=== PATIENT | male | born 1995 | race Caucasian/White ===

== ENCOUNTER 2018-12-14 10:02 | Emergency (ER) | payer BC ==
[~2018-12-14] VITALS: Ht 170.2 cm; Wt 72.6 kg
--- NOTE | 2018-12-14 10:12 | PHYS DOC ---
Adult General Chief Complaint Chief Complaint: FLANK PAIN HPI HPI Patient is a 23 year old male that presents with left flank pain has been ongoing for 20 minutes. The patient states he has a history kidney stones. Rates his pain as 10 out of 10 in severity and sharp. No interventions prior to arrival. Review of Systems Review of Systems Constitutional: Denies fever or chills [] Eyes: Denies change in visual acuity, redness, or eye pain [] HENT: Denies nasal congestion or sore throat [] Respiratory: Denies cough or shortness of breath [] Cardiovascular: No additional information not addressed in HPI [] GI: Reports L flank pain, nausea, Denies vomiting, bloody stools or diarrhea [] : Denies dysuria or hematuria [] Musculoskeletal: Denies back pain or joint pain [] Integument: Denies rash or skin lesions [] Neurologic: Denies headache, focal weakness or sensory changes [] Endocrine: Denies polyuria or polydipsia [] Complete systems were reviewed and found to be within normal limits, except as documented in this note. Current Medications Current Medications Current Medications Medications (Trade) Dose Ordered Sig/George Start Time Stop Time Status Last Admin Dose Admin Ketorolac Tromethamine (Toradol 15mg Vial) 10 mg 1X STAT 12/14/18 10:19 12/14/18 10:20 DC 12/14/18 10:30 10 MG Morphine Sulfate (Morphine Sulfate) 2 mg 1X ONCE 12/14/18 10:30 12/14/18 10:31 DC 12/14/18 10:30 2 MG Ondansetron HCl (Zofran) 4 mg 1X ONCE 12/14/18 10:30 12/14/18 10:31 DC 12/14/18 10:29 4 MG Sodium Chloride 500 ml @ 500 mls/hr 1X ONCE 12/14/18 12:00 12/14/18 12:59 Allergies Allergies Allergies Coded Allergies Type Severity Reaction Last Updated Verified No Known Drug Allergies 12/14/18 No Physical Exam Physical Exam Constitutional: Well developed, well nourished, no acute distress, non-toxic appearance. [] HENT: Normocephalic, atraumatic, bilateral external ears normal, oropharynx moist, no oral exudates, nose normal. [] Eyes: PERRLA, EOMI, conjunctiva normal, no discharge. [] Neck: Normal range of motion, no tenderness, supple, no stridor. [] Cardiovascular:Heart rate regular rhythm, no murmur [] Lungs & Thorax: Bilateral breath sounds clear to auscultation [] Abdomen: Bowel sounds normal, soft, no tenderness, no masses, no pulsatile masses. [] Skin: Warm, dry, no erythema, no rash. [] Back: Has L sided CVA tenderness. Extremities: No tenderness, no cyanosis, no clubbing, ROM intact, no edema. [] Neurologic: Alert and oriented X 3, normal motor function, normal sensory function, no focal deficits noted. [] Psychologic: Affect normal, judgement normal, mood normal. [] Current Patient Data Vital Signs Vital Signs Date Time Temp Pulse Resp B/P (MAP) Pulse Ox O2 Delivery O2 Flow Rate FiO2 12/14/18 10:30 12 97 Room Air 12/14/18 10:05 98.3 93 133/62 (85) 98.3 Lab Values Laboratory Tests Test 12/14/18 00:45 12/14/18 10:20 Urine Collection Type Unknown Urine Color Yellow Urine Clarity Clear Urine pH 6.5 Urine Specific [place] 1.020 Urine Protein Negative mg/dL (NEG-TRACE) Urine Glucose (UA) Negative mg/dL (NEG) Urine Ketones (Stick) Negative mg/dL (NEG) Urine Blood Negative (NEG) Urine Nitrite Negative (NEG) Urine Bilirubin Negative (NEG) Urine Urobilinogen Dipstick 0.2 mg/dL (0.2 mg/dL) Urine Leukocyte Esterase Negative (NEG) Urine RBC 0 /HPF (0-2) Urine WBC 1-4 /HPF (0-4) Urine Squamous Epithelial Cells Occ /LPF Urine Bacteria 0 /HPF (0-FEW) Urine Mucus Mod /LPF White Blood Count 6.9 x10^3/uL (4.0-11.0) Red Blood Count 5.10 x10^6/uL (4.30-5.70) Hemoglobin 15.5 g/dL (13.0-17.5) Hematocrit 45.4 % (39.0-53.0) Mean Corpuscular Volume 89 fL (79-100) Mean Corpuscular Hemoglobin 30 pg (25-35) Mean Corpuscular Hemoglobin Concent 34 g/dL (31-37) Red Cell Distribution Width 13.1 % (11.5-14.5) Platelet Count 287 x10^3/uL (140-400) Neutrophils (%) (Auto) 56 % (31-73) Lymphocytes (%) (Auto) 33 % (24-48) Monocytes (%) (Auto) 9 % (0-9) Eosinophils (%) (Auto) 1 % (0-3) Basophils (%) (Auto) 0 % (0-3) Neutrophils # (Auto) 3.9 x10^3/uL (1.8-7.7) Lymphocytes # (Auto) 2.3 x10^3/uL (1.0-4.8) Monocytes # (Auto) 0.6 x10^3/uL (0.0-1.1) Eosinophils # (Auto) 0.1 x10^3/uL (0.0-0.7) Basophils # (Auto) 0.0 x10^3/uL (0.0-0.2) Sodium Level 142 mmol/L (136-145) Potassium Level 4.0 mmol/L (3.5-5.1) Chloride Level 105 mmol/L (98-107) Carbon Dioxide Level 28 mmol/L (21-32) Anion Gap 9 (6-14) Blood Urea Nitrogen 13 mg/dL (8-26) Creatinine 1.0 mg/dL (0.7-1.3) Estimated GFR (Cockcroft-Gault) 92.6 BUN/Creatinine Ratio 13 (6-20) Glucose Level 88 mg/dL (70-99) Calcium Level 9.4 mg/dL (8.5-10.1) Total Bilirubin 0.6 mg/dL (0.2-1.0) Aspartate Amino Transferase (AST) 21 U/L (15-37) Alanine Aminotransferase (ALT) 30 U/L (16-63) Alkaline Phosphatase 55 U/L (46-116) Total Protein 7.7 g/dL (6.4-8.2) Albumin 4.1 g/dL (3.4-5.0) Albumin/Globulin Ratio 1.1 (1.0-1.7) Laboratory Tests 12/14/18 10:20 Laboratory Tests 12/14/18 10:20 EKG EKG [] Radiology/Procedures Radiology/Procedures [][facility] [address] [place] [address] IMAGING REPORT Signed PATIENT: EULALIO VENTURA ACCOUNT: [id number] : 1995 LOCATION: ER AGE: 23 SEX: M EXAM STATUS: REG ER ORD. PHYSICIAN: WESLEY ALDANA APRN REASON: L flank pain CT 2 WKS AGO OFF SITE-STATES KNOWN KIDNEY STONE PAIN X 20 MIN PROCEDURE: CT ABDOMEN PELVIS WO CONTRAST Study: CT abdomen and pelvis without contrast Indication: Left flank pain. Comparison: None available. Technique: Helical CT imaging performed of the abdomen and pelvis without the use of intravenous contrast. Sagittal and coronal reformats were obtained. Findings: Two intrarenal stones on the right, one at the mid pole measuring 4 mm, image 70 series 2, and at the lower pole measuring 2.5 mm, image 80 series 2. Approximately six small intrarenal stones on the left, the largest at the inferior pole on image 81 series 2 measuring 3 mm. No ureteral calculus seen bilaterally or stone within the urinary bladder. No hydronephrosis or hydroureter. Punctate focus of mineralization in the right hemipelvis, image 188 series 2, appears to be outside the ureteral lumen. The unenhanced appearance of the liver, spleen, pancreas, gallbladder, adrenal glands and renal parenchyma is within normal limits. Unremarkable small bowel, colon, appendix and stomach. Short segment distended loops of small bowel at the left upper quadrant is felt within the broad range of normal. The urinary bladder is unremarkable, as is the prostate. No free fluid or air. No lymphadenopathy. Unremarkable body wall soft tissues. The visualized lungs and heart are unremarkable. Incidental note made of a limbus vertebra at L3 as well as Schmorl's nodes at T8 and to a lesser degree at the inferior endplate of T7. Impression: Numerous intrarenal stones, greater in number on the left, without findings to suggest obstruction as the collecting system is not dilated. No nephrolithiasis seen along the course of either ureter or within the urinary bladder. Electronically signed by: ADRIANA CONCEPCION MD (12/14/2018 11:16 AM) [id number] DICTATED and SIGNED BY: ADRIANA CONCEPCION MD DATE: 12/14/18 1115 Course & Med Decision Making Course & Med Decision Making Pertinent Labs and Imaging studies reviewed. (See chart for details) Will get labs, UA, and CT. Will also give supportive care. labs are unremarkable, CT does not show a stone in the ureter but does show stones in Kidney. Patient is symptomatic and am wondering if stone is smaller and not seen by CT. Urine is unremarkable. Will give Flomax and Tea as I suspect that the patient has a small kidney stone that was not seen on CT based off of clinical exam. Dragon Disclaimer Dragon Disclaimer This electronic medical record was generated, in whole or in part, using a voice recognition dictation system. Departure Departure Impression: Primary Impression: Flank pain Disposition: HOME, SELF-CARE Condition: STABLE Referrals: NO PCP (PCP) Patient Instructions: Diet for Kidney Stones Additional Instructions: Thank you for visiting [facility]. We appreciate you trusting us with your care. If any additional problems come up don't hesitate to return to visit us. Please follow up with your primary care provider so they can plan additional care if needed and know about the problem that you had. If symptoms worsen come back to the Emergency Department. Any concerning symptoms that start such as chest pain, shortness of air, weakness or numbness on one side of the body, running high fevers or any other concerning symptoms return to the ER. Scripts Hydrocodone/Apap 5-325 (NORCO 5-325 TABLET) 1 Each Tablet 1-2 TAB PO Q4-6HRS for 3 Days, #10 TAB Prov: WESLEY ALDANA APRN 12/14/18 Tamsulosin Hcl (FLOMAX) 0.4 Mg Cap.er.24h 1 CAP PO DAILY, #10 CAP 00 Refills Prov: WESLEY ALDANA APRN 12/14/18 WESLEY ALDANA APRN Dec 14, 2018 10:12
[2018-12-14] MEDS ORDERED: KETOROLAC 15 MG/ML VIAL. IV STA (10:19)
[2018-12-14] MEDS ORDERED: ONDANSETRON PF 4 MG/2 ML VIAL. IV ONE (10:30)
[2018-12-14] MEDS ORDERED: MORPHINE SULFATE 2 MG/ML VIAL. IV ONE (10:30)
[2018-12-14] MEDS ORDERED: IV NORMAL SALINE 1000ML BAG 1,000 ML IV ONE (10:30)
[2018-12-14 10:45] LABS: BASO % 0 % (0-3); EOS # 0.1 x10^3/uL (0.0-0.7); EOS % 1 % (0-3); HEMATOCRIT 45.4 % (39.0-53.0); HEMOGLOBIN 15.5 g/dL (13.0-17.5); LYMPH # 2.3 x10^3/uL (1.0-4.8); LYMPH % 33 % (24-48); MEAN CORPUSCULAR HEMOGLOBIN 30 pg (25-35); MEAN CORPUSCULAR HGB CONC 34 g/dL (31-37); MEAN CORPUSCULAR VOLUME 89 fL (79-100); MONO # 0.6 x10^3/uL (0.0-1.1); MONO % 9 % (0-9); NEUT # 3.9 x10^3/uL (1.8-7.7); NEUT % 56 % (31-73); PLATELET COUNT 287 x10^3/uL (140-400); RED CELL DISTRIBUTION WIDTH 13.1 % (11.5-14.5); WHITE BLOOD COUNT 6.9 x10^3/uL (4.0-11.0)
[2018-12-14 10:51] LABS: CALCIUM 9.4 mg/dL (8.5-10.1); GFR 92.6
[2018-12-14 10:56] LABS: ALBUMIN 4.1 g/dL (3.4-5.0); ALBUMIN/GLOBULIN RATIO 1.1 (1.0-1.7); TOTAL BILIRUBIN 0.6 mg/dL (0.2-1.0); TOTAL PROTEIN 7.7 g/dL (6.4-8.2)
--- NOTE | 2018-12-14 11:19 | RAD ---
Study: CT abdomen and pelvis without contrast Indication: Left flank pain. Comparison: None available. Technique: Helical CT imaging performed of the abdomen and pelvis without the use of intravenous contrast. Sagittal and coronal reformats were obtained. Findings: Two intrarenal stones on the right, one at the mid pole measuring 4 mm, image 70 series 2, and at the lower pole measuring 2.5 mm, image 80 series 2. Approximately six small intrarenal stones on the left, the largest at the inferior pole on image 81 series 2 measuring 3 mm. No ureteral calculus seen bilaterally or stone within the urinary bladder. No hydronephrosis or hydroureter. Punctate focus of mineralization in the right hemipelvis, image 188 series 2, appears to be outside the ureteral lumen. The unenhanced appearance of the liver, spleen, pancreas, gallbladder, adrenal glands and renal parenchyma is within normal limits. Unremarkable small bowel, colon, appendix and stomach. Short segment distended loops of small bowel at the left upper quadrant is felt within the broad range of normal. The urinary bladder is unremarkable, as is the prostate. No free fluid or air. No lymphadenopathy. Unremarkable body wall soft tissues. The visualized lungs and heart are unremarkable. Incidental note made of a limbus vertebra at L3 as well as Schmorl's nodes at T8 and to a lesser degree at the inferior endplate of T7. Impression: Numerous intrarenal stones, greater in number on the left, without findings to suggest obstruction as the collecting system is not dilated. No nephrolithiasis seen along the course of either ureter or within the urinary bladder. Electronically signed by: ADRIANA CONCEPCION MD (12/14/2018 11:16 AM) [facility]
[2018-12-14 11:55] LABS: BILIRUBIN,URINE NEGATIVE (NEG); CLARITY,URINE CLEAR; COLOR,URINE YELLOW; NITRITE,URINE NEGATIVE (NEG); PH,URINE 6.5; PROTEIN,URINE NEGATIVE (NEG-TRACE); UROBILINOGEN,URINE 0.2 mg/dL (0.2 mg/dL)
[2018-12-14 12:00] VITALS: BP 121/74
[2018-12-14] MEDS ORDERED: IV NORMAL SALINE 500ML BAG 500 ML IV ONE (12:00)
[2018-12-14 12:02] LABS: SQUAMOUS EPITHELIAL CELL,UR OCC /LPF
[2018-12-14 12:03] LABS: BACTERIA,URINE 0 /HPF (0-FEW); RBC,URINE 0 /HPF (0-2)
[2018-12-14] MEDS ORDERED: TAMS0.4C97 PO (12:10)
[2018-12-14] MEDS ORDERED: HYDR-3164 PO (12:10)
== END 2018-12-14 12:17 | disposition home or self-care (01) ==
LOC: ER 10:02
DX: R10.9 Unspecified abdominal pain (principal); R11.0 Nausea
CPT/HCPCS: 36415; 74176; 80053; 81001; 85025; 96374; 96375; 99285; J1885; J2270; J2405; J7030